=== PATIENT | male | born 1945 | race Caucasian/White ===

== ENCOUNTER 2022-07-31 12:56 | Inpatient (IN) ==
[2022-07-31] MEDS ORDERED: 0.9 % SODIUM CHLORIDE 1,000 ML IV ONE (13:41)
--- NOTE | 2022-07-31 13:59 | Emergency Department Note ---
HPI General Chief complaint: Fall Stated complaint: fall Time Seen by Provider: 07/31/22 13:28 Source: EMS Mode of arrival: EMS Limitations: no limitations History of Present Illness HPI Narrative: Narrative: Presents emergency department for evaluation after fall. Is been dizzy at home. He fell today. He is not certain if he had a loss consciousness he does not think so. He might of struck his head. Complains of pain in the right hip which has been achy. He has been ambulatory since the fall. Currently on antibiotics Macrobid for urinary tract infection. Has history of pancreatic cancer for the past 5 years. No fever. Has recent history of hematuria. First visit with urology was on the second of this month. Follow-up scheduled for 1 week from today. Just finishing Macrobid. No other complaints. Related Data Home Medications Medication Instructions Recorded Confirmed cholecalciferol (vitamin D3) 25 1,000 unit PO QDAY 07/16/18 07/26/22 mcg (1,000 unit) tablet calcium carbonate 600 mg calcium 600 mg PO QDAY 07/10/22 07/26/22 (1,500 mg) tablet (Calcium) magnesium oxide 400 mg (241.3 mg 400 mg PO QDAY 07/10/22 07/26/22 magnesium) tablet Previous Rx's Medication Instructions Recorded docusate sodium 100 mg capsule 100 mg PO BID #60 caps 04/04/21 (DOK) empagliflozin 25 mg tablet 25 mg PO QDAY #90 tabs 08/29/21 (Jardiance) albuterol sulfate 90 mcg/actuation 2 puff inhalation Q6H PRN 09/27/21 aerosol inhaler shortness of breath or wheezing #8.5 grams Portable O2 concentrator #1 ea 10/06/21 insulin glargine 100 unit/mL (3 25 unit (0.25 mL) subcut QHS #15 mL 10/06/21 mL) subcutaneous pen (Lantus Solostar U-100 Insulin) labetalol 200 mg tablet 200 mg PO BID #180 tabs 03/06/22 potassium chloride 20 mEq 20 meq PO QPMCC #90 tabs 03/23/22 tablet,extended release hydrocodone 10 mg-acetaminophen 1 - 2 tab PO Q4HP PRN Per Pain 04/15/22 325 mg tablet Protocol #60 tabs insulin aspart U-100 100 unit/mL 1 sliding scale dose subcut 05/04/22 (3 mL) subcutaneous pen (Novolog USEASDIRECTD #15 mL Flexpen U-100 Insulin aspart) omeprazole 40 mg capsule,delayed 40 mg PO BID #180 caps 05/05/22 release oxybutynin chloride 5 mg tablet 5 mg PO BID #180 tabs 05/05/22 gabapentin 300 mg capsule 300 mg PO .COMPLEX #120 caps 07/06/22 mirtazapine 15 mg tablet 15 mg PO QHS #90 tabs 07/10/22 tamsulosin 0.4 mg capsule (Flomax) 0.4 mg PO QHS #90 caps 07/10/22 furosemide 20 mg tablet (Lasix) 20 mg PO QDAY #30 tabs 07/12/22 amlodipine 5 mg tablet 5 mg PO BID #180 tabs 07/24/22 Allergies Allergy/AdvReac Type Severity Reaction Status Date / Time ciprofloxacin Allergy Intermediate rash/nausea Verified 07/31/22 13:05 lansoprazole [From Prevacid] AdvReac Mild Other Verified 07/31/22 13:05 tiotropium AdvReac Mild Other Verified 07/31/22 13:05 [From Spiriva with HandiHaler] advair HFA AdvReac Mild Other Uncoded 07/26/22 09:55 Review of Systems ROS ROS Narrative: Narrative: As above, all other systems reviewed and negative. [facility] Narrative Patient History Narrative: Narrative: Medical/Surgical/Family History All Active Problems (Updated 07/31/22 @ 18:56 by Raji Mercedes MD) Atypical chest pain (Chronic) Back pain (Chronic) Barkley's esophagus (Chronic) Adenomatous colon polyp (Chronic) Esophagitis (Chronic) Goiter (Chronic) Dyslipidemia (Chronic) Essential hypertension (Chronic) Calculus of kidney (Chronic) Malignant neoplasm of prostate (Chronic) Personal history of other malignant neoplasm of skin (Chronic) History of tobacco use (Chronic) Previous back surgery (Chronic) Chronic obstructive pulmonary disease (Chronic) Nocturnal dyspnea (Acute) Aortic valve insufficiency (Chronic) Pancreatitis (Acute) Encounter for Health Maintenance Examination in Adult (Chronic) Pulmonary nodule (Acute) Bronchitis (Acute) Diabetes mellitus (Chronic) 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 2005-- No polyps. 10/2007 -- Diverticuli. 01/20/2013 -- Uncomplicated internal hemorrhoids and diverticulosis. 5 year sequencing. Advanced COPD Distant ex-smoker, quit in 2001. Component of COPD; extensive workup at the [facility] 03/2010 for dyspnea with previous CTA echo, PFTs with diffusion, VQ scan and cardiolite. Chest x-ray 06/2011; previous hoarseness with ENT review in 07/2011. Issue clinically stable. Aortic valve insufficiency 1+ by 08/2015 echo Atypical chest pain Questionable cardiolite 2004; negative heart cath. Stable cardiolite in 2009. Back pain Low back pain with right leg radiculopathy; MRI 01/2012. Sequencing at pain clinic unhelpful; mini lumbar surgery with Dr. Pedroza 07/2012. Barkley's esophagus 08/22/04 EGD--Barkley's esophagus, biopsied for dysplasia surveillance. Hiatal hernia. 01/24/08 EGD w/biopsy--Barkley's; nodule gastric fundus. 01/26/10 EGD--Barkley's; hiatal hernia; minor antritis; fundic polyps. 05/11/10--EGD--Barkley's, positive for low grade dysplasia; squamous mucosa, neg. for significant eosinophilia. 05/01/11 EGD--Barkley's esophagus; hiatal hernia. Stable on high-dose of Prilosec. 08/04/13 EGD--Dr. Ragland--Barkley's esophagus, hiatal hernia. 3-year sequence. Bronchitis Calculus of kidney Hx; previously reviewed by Dr. Couch. Chronic obstructive pulmonary disease Dyslipidemia Currently on medication. Esophagitis Essential hypertension Previous assessment of her renal artery stenosis. Goiter Hx of multinodular goiter, orgininally evaluated in 2003 with negative biopsy of cold nodule 04/2004, updated US 2006; negative antibodies and stable updated US 11/2011. Currently stable thyroid. History of tobacco use Distant ex-smoker, quit in 2001. Component of COPD; extensive workup at the [facility] 03/2010 for dyspnea with previous CTA echo, PFTs with diffusion, VQ scan and cardiolite. Chest x-ray 06/2011; previous hoarseness with ENT review in 07/2011. Issue clinically stable. Malignant neoplasm of prostate S/P radiation therapy in 05/2009, gradually improving. 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 Regular dermatology review with Dr. Viera. SOB (shortness of breath) Distant ex-smoker, quit in 2001. Component of COPD; extensive workup at the [facility] 03/2010 for dyspnea with previous CTA echo, PFTs with diffusion, VQ scan and cardiolite. Chest x-ray 06/2011; previous hoarseness with ENT review in 07/2011. Issue clinically stable. Urinary tract infection Surgical History H/O repair of rotator cuff 10/2008 History of cardiac cath History of colonoscopy (05/02/18) 01/20/13 Hx of colonoscopy 2003-- Adenomatous polyp. 2005-- No polyps. 10/2007 -- Diverticuli. 01/20/2013 -- Uncomplicated internal hemorrhoids and diverticulosis. 5 year sequencing. Hx of esophagogastroduodenoscopy (08/22/04) Barkley's esophagus, biopsied for dysplasia surveillance. Hiatal hernia. 01/24/08 EGD w/biopsy--Barkley's; nodule gastric fundus. 01/26/10 EGD--Barkley's; hiatal hernia; minor antritis; fundic polyps. 05/11/10--EGD--Barkley's, positive for low grade dysplasia; squamous mucosa, neg. for significant eosinophilia. 05/01/11 EGD--Barkley's esophagus; hiatal hernia. 08/04/13 EGD--Dr. Ragland--Barkley's esophagus, hiatal hernia. 3-year sequence. Hx of prostate biopsy (04/05/09) Prostate biopsy 04/05/09--Dr. Couch. Previous back surgery 07/2012 - mini lumbar surgery S/P radiation therapy Prostate cancer S/P surgical manipulation of ankle joint 04/2011 - right ankle repair Status post surgical removal of malignant neoplasm of skin 10/2009 - nasal skin cancer Family History Mother Diabetes mellitus on oral agents Other Cancer HTN (hypertension) Kidney stone Prostate cancer Social History Smoking Status: Former smoker Alcohol Intake Frequency: holiday/special occasion only Substance Use: does not use Exam Narrative Narrative: Narrative: Blood pressure 101/54, pulse 80, respirations 16, temperature 98, O2 sat 97% on 4 L. General Limitations: no limitations General appearance: Present alert Head Head: Present atraumatic, normocephalic and normal inspection Eye Eye: Present normal appearance, PERRL and EOMI ENT ENT: Present normal exam Neck Neck: Present normal inspection and full ROM Respiratory Respiratory: Absent respiratory distress Extremities Extremities: Present normal inspection Neurological Neurological: Present alert, oriented X3 and CN II-XII intact; Absent motor sensory deficit Psychiatric Psychiatric: Present normal affect and normal mood Skin Skin: Present warm (WNL) and dry Course Vital Signs Vital signs: Vital Signs Temperature 98.0 F 07/31/22 13:01 Pulse Rate 80 07/31/22 13:01 Respiratory Rate 16 07/31/22 13:01 Blood Pressure 101/54 07/31/22 13:01 Pulse Oximetry (%) 97 07/31/22 13:01 Oxygen Delivery Method 07/31/22 13:01 Oxygen Flow Rate (L/min) 4 07/31/22 13:01 Temperature 98.0 F 07/31/22 13:01 Pulse Rate 81 07/31/22 16:27 Respiratory Rate 16 07/31/22 13:01 Blood Pressure 107/62 07/31/22 14:05 Pulse Oximetry (%) 96 07/31/22 16:27 Oxygen Delivery Method 07/31/22 14:00 Oxygen Flow Rate (L/min) 4 07/31/22 13:01 [facility] MDM Narrative Medical decision making narrative: Narrative: EKG shows sinus rhythm, no acute ischemic changes, intervals otherwise normal. Patient's hydrated IV fluids. Spoke with the on-call urologist on-call hospitalist. Case reviewed in detail over the phone. Patient be admitted to the hospitalist service. Discussed findings with patient and the family. Their questions were answered. 1 unit PRBCs were ordered. Patient is agreeable with the plan. Lab Data Result diagrams: 07/31/22 13:59 07/31/22 13:59 Labs: Lab Results 07/31/22 07/31/22 07/31/22 Range/Units 13:59 13:59 15:12 WBC 3.1 L (4.5-11.0) K/mcL RBC 2.22 L (4.63-6.08) M/mcL Hgb 7.7 L (13.7-17.5) g/dL Hct 24.3 L (40.1-51.0) % MCV 109.5 H (80.0-100.0) fL MCH 34.7 H (26.0-34.0) pg MCHC 31.7 (31.0-36.0) g/dL RDW 17.1 H (11.5-14.5) % Plt Count 94 L (140-440) K/mcL MPV 10.2 (8.8-12.5) fL Immature Gran % (Auto) 1.6 H (0.0-0.5) % Neut % (Auto) 64.0 (38.0-78.0) % Lymph % (Auto) 11.8 L (15.5-49.0) % Sanders % (Auto) 19.3 H (1.0-12.0) % Eos % (Auto) 2.6 (0.0-7.0) % Baso % (Auto) 0.7 (0.0-2.0) % Lymph # (Auto) 0.36 L (1.50-4.80) K/mcL Sanders # (Auto) 0.59 (0.10-0.90) K/mcL Eos # (Auto) 0.08 (0.00-0.70) K/mcL Baso # (Auto) 0.02 (0.00-0.30) K/mcL Immature Gran # 0.05 (0.00-0.05) K/mcl Absolute Neutrophils 1.96 (1.80-8.00) K/mcL Sodium 139 (133-145) mmol/L Potassium 4.5 (3.3-5.1) mmol/L Chloride 107 (96-108) mmol/L Carbon Dioxide 27 (22-30) mmol/L Anion Gap 5.0 L (8.0-16.0) BUN 21 (8-23) mg/dL Creatinine 1.5 H (0.7-1.2) mg/dL GFR Calculation 44 Glucose 145 H (70-105) mg/dL Calcium 8.8 (8.6-10.4) mg/dL Urine Color Red Urine Appearance Cloudy A (Clear) Urine pH 6.0 (5.0-9.0) Ur Specific [place] 1.025 (1.000-1.035) Urine Protein >=300 A (Negative) mg/dL Urine Glucose (UA) >=1000 A (Negative) mg/dL Urine Ketones Negative (Negative) mg/dL Urine Occult Blood Large A (Negative) jaki/mcL Urine Nitrate Negative (Negative) Urine Bilirubin Negative (Negative) mg/dL Urine Urobilinogen Normal mg/dL Ur Leukocyte Esterase Negative (Negative) /uL Urine RBC > 182 H (0-1) /hpf Urine WBC > 182 H (0-4) /hpf Ur Squamous Epith Cells 0 (0-4) /hpf Urine Bacteria Mod A (0) /hpf Ur Culture Indicated? yes Discharge Plan Patient/Caregiver Discharge Instructions Pt seen by SQL CONSULTANT/PA only: No Clinical Impression: Hematuria, Anemia, Weakness, Fall Patient Disposition: Xfer As Inpt ([facility]) Follow up with: Thai Joy DO [Primary Care Provider] - Prescriptions: No Action Jardiance 25 mg tablet 25 mg PO QDAY Qty: 90 3RF Lantus Solostar U-100 Insulin 100 unit/mL (3 mL) insulin pen 25 unit SUB-Q QHS Qty: 15 3RF Hold Instructions: Doctor's Order (DME) Portable O2 concentrator See Rx Instructions .Route .MEDSUPPLY Qty: 1 0RF Rx Instructions: Up to 2L NC as needed to keep O2 >90% labetalol 200 mg tablet 200 mg PO BID Qty: 180 1RF potassium chloride 20 mEq tablet extended release 20 meq PO QPMCC Qty: 90 1RF insulin aspart U-100 [Novolog Flexpen U-100 Insulin] 100 unit/mL (3 mL) insulin pen 1 sliding scale dose subcut USEASDIRECTD MDD 50 units Qty: 15 3RF Hold Instructions: Doctor's Order Rx Instructions: 2u for glucose 180-200, 3u 201-220, 4u 221-240, 5u 241-260, 6u 261-280, 7u 281-300, 8u 301-320, 9u 321-340, 10u for 341+ omeprazole 40 mg capsule,delayed release(DR/EC) 40 mg PO BID Qty: 180 1RF oxybutynin chloride 5 mg tablet 5 mg PO BID Qty: 180 0RF gabapentin 300 mg capsule 300 mg PO .COMPLEX Qty: 120 3RF Rx Instructions: 300 mg PO QAM, 300mg QNoon, 600mgQHS; furosemide [Lasix] 20 mg tablet 20 mg PO QDAY Qty: 30 1RF amlodipine 5 mg tablet 5 mg PO BID Qty: 180 1RF cholecalciferol (vitamin D3) 1,000 unit tablet 1,000 unit PO QDAY albuterol sulfate 90 mcg/actuation HFA aerosol inhaler 2 puff inhalation Q6H PRN (Reason: shortness of breath or wheezing) Qty: 8.5 3RF magnesium oxide 400 mg (241.3 mg magnesium) tablet 400 mg PO QDAY calcium carbonate [Calcium 600] 600 mg calcium (1,500 mg) tablet 600 mg PO QDAY mirtazapine 15 mg tablet 15 mg PO QHS Qty: 90 3RF tamsulosin [Flomax] 0.4 mg capsule 0.4 mg PO QHS Qty: 90 3RF docusate sodium [DOK] 100 mg Capsule 100 mg PO BID Qty: 60 0RF hydrocodone-acetaminophen 10-325 mg Tablet 1 - 2 tab PO Q4HP PRN (Reason: Per Pain Protocol) Qty: 60 0RF
--- NOTE | 2022-07-31 14:50 | Cat Scan Report ---
History: Fell, dizziness, weakness, history of pancreas and prostate cancer TECHNIQUE: The brain was imaged without contrast in axial plane at 2.5 mm intervals. Sagittal and coronal reformats were created. The radiation exposure was limited using dose reduction technology. FINDINGS: Mild atrophy is present in the frontal and temporal lobes bilaterally. There is no intracranial hemorrhage, edema, infarct or mass effect. The ventricles are normal in size. No abnormal extra-axial fluid collection is present. Bone windows show no skull fracture or metastasis. Visualized sinuses are clear. Calvarium is asymmetrically developed. This is an anatomic variant. IMPRESSION: Mild age-related degenerative changes and no acute abnormality Dr. Mercedes was called with the report Interpreted and Authenticated by: Shamar Billings 07/31/22
[2022-07-31 15:15] LABS: Blood Urea Nitrogen 21 mg/dL (8-23); Calcium 8.8 mg/dL (8.6-10.4); Carbon Dioxide 27 mmol/L (22-30); Chloride 107 mmol/L (96-108); Glomerular Filtration Rate 44; Glucose 145 mg/dL (70-105)
--- NOTE | 2022-07-31 15:48 | XRay Report ---
HISTORY: Fell, right hip injury FINDINGS: No fracture or dislocation are present. There is a well-positioned right total hip prosthesis. There is no reabsorption of bone around the hardware. There are several vascular calcifications in the groin and upper thigh. Small surgical clips are seen overlying the pubic bones. Disc space narrowing is present at L3-4 and L4-5. Comparison with the prior x-ray done on 05/26/22 shows no change. IMPRESSION: No fracture Interpreted and Authenticated by: Shamar Billings 07/31/22
[2022-07-31 16:15] LABS: Basophils # (Auto) 0.02 K/mcL (0.00-0.30); Basophils % (Auto) 0.7 % (0.0-2.0); Eosinophils # (Auto) 0.08 K/mcL (0.00-0.70); Eosinophils % (Auto) 2.6 % (0.0-7.0); Hematocrit 24.3 % (40.1-51.0); Hemoglobin 7.7 g/dL (13.7-17.5); Lymphocytes # (Auto) 0.36 K/mcL (1.50-4.80); Lymphocytes % (Auto) 11.8 % (15.5-49.0); Mean Cell Volume 109.5 fL (80.0-100.0); Mean Corpuscular HGB Conc 31.7 g/dL (31.0-36.0); Mean Platelet Volume 10.2 fL (8.8-12.5); Monocytes # (Auto) 0.59 K/mcL (0.10-0.90); Monocytes % (Auto) 19.3 % (1.0-12.0); Platelet Count 94 K/mcL (140-440); RBC 2.22 M/mcL (4.63-6.08); Red Cell Distribution Width 17.1 % (11.5-14.5); WBC 3.1 K/mcL (4.5-11.0)
[2022-07-31 16:15] LABS: Appearance,Urine CLOUDY (Clear); Bacteria,Urine MOD /hpf (0); Bilirubin,Urine NEGATIVE (Negative); Color,Urine RED; Culture Indicated,Urine yes; Glucose,Urine (UA) >=1000 mg/dL (Negative); Ketones,Urine NEGATIVE (Negative); Leukocyte Esterase,Urine NEGATIVE /uL (Negative); Nitrate,Urine NEGATIVE (Negative); Protein,Urine >=300 mg/dL (Negative); Specific Gravity,Urine 1.025 (1.000-1.035); Urine Blood LARGE ery/mcL (Negative); Urine RBC > 182 /hpf (0-1); Urine Squamous Epithelial Cell 0 /hpf (0-4); Urine WBC > 182 /hpf (0-4); Urobilinogen,Urine Normal
[2022-07-31] MEDS ORDERED: 0.9 % SODIUM CHLORIDE 250 ML IV SCH (19:00)
--- NOTE | 2022-07-31 19:29 | Internal Med History&Physical ---
HPI History of Present Illness Patient information: Note initiated : 07/31/22 at 7:26 pm Service Date, if different from initiated Date: [] Patient: Terrence Hoyos a 77 y/o M admitted on for fall. Chief Complaint: [] History of present illness: Mr. Hoyos is a 77 year old male with a history of multiple comorbidities most significant of which is stage IV pancreatic adenocarcinoma diagnosed in 2017 currently receiving chemotherapy every 2 weeks with gemcitabine and Abraxane. 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 Patient also has a history of prostate cancer diagnosed 5 to 6 years ago treated with external beam radiation treatments. More recently, the patient developed gross hematuria and was seen in the ED where he was found to have a urinary tract infection. The patient was started on antibiotics which she recently finished for UTI. The patient continues to have hematuria which has not improved in spite of antibiotic treatment. The patient did have a CT abdomen pelvis with contrast on 07/20/2022 which showed abnormal bladder mucosal thickening which could represent cystitis versus malignancy. The patient presents today to the emergency department for generalized weakness and a fall at home. The patient says that he has been getting progressively weaker over the last week. He continues to experience gross hematuria with clots seen in his urine. In the emergency department, the patient's hemoglobin was 7.7, down from 10.3 on 07/21/2022. Patient also has a elevation in creatinine to 1.5, baseline 1.0-1.2. Patient did have a CT head which did not show any acute changes. Patient also had a x-ray of his right hip which did not show any acute fractures. Upon examination, the patient is noted to have gross hematuria. He has bilateral lower extremity pitting edema and is on 4 L nasal cannula oxygen. Patient says that this oxygen requirement is not new, he has been on home oxygen for some time. We discussed the plan of care and reviewed the patient's CODE STATUS. Patient says that he wishes to be a limited code. Review of systems Constitutional: No fevers or chills, positive for generalized weakness Eyes: no vision changes or pain Cardiovascular: no chest pain, no palpitations Respiratory: no cough or dyspnea Gastrointestinal: Mild abdominal pain, no nausea, vomiting, or diarrhea Genitourinary: Positive for gross hematuria Musculoskeletal: Positive for bilateral lower extremity edema Integumentary: Positive for pressure wound on buttocks Neurological: no focal weakness or numbness Psychiatric: no anxiety or depression Physical exam Head: Atraumatic, normal inspection. Eyes: normal appearance, no scleral icterus. Neck: full ROM Respiratory: Nasal cannula oxygen supplementation, no respiratory distress. Cardiovascular: normal rate and rhythm, S1, S2. GI/Abdominal: soft, nontender, no guarding. Extremities: Bilateral lower extremity pitting edema up to knees, full range of motion, nontender. Neurological: CN II-XII intact, intact motor, intact sensation. Psychiatric: Memory impairment. Skin: warm, normal color PFSH PFSH All Active Problems (Updated 07/31/22 @ 18:56 by Raji Mercedes MD) Atypical chest pain (Chronic) Back pain (Chronic) Barkley's esophagus (Chronic) Adenomatous colon polyp (Chronic) Esophagitis (Chronic) Goiter (Chronic) Dyslipidemia (Chronic) Essential hypertension (Chronic) Calculus of kidney (Chronic) Malignant neoplasm of prostate (Chronic) Personal history of other malignant neoplasm of skin (Chronic) History of tobacco use (Chronic) Previous back surgery (Chronic) Chronic obstructive pulmonary disease (Chronic) Nocturnal dyspnea (Acute) Aortic valve insufficiency (Chronic) Pancreatitis (Acute) Encounter for Health Maintenance Examination in Adult (Chronic) Pulmonary nodule (Acute) Bronchitis (Acute) Diabetes mellitus (Chronic) 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 2005-- No polyps. 10/2007 -- Diverticuli. 01/20/2013 -- Uncomplicated internal hemorrhoids and diverticulosis. 5 year sequencing. Advanced COPD Distant ex-smoker, quit in 2001. Component of COPD; extensive workup at the [facility] 03/2010 for dyspnea with previous CTA echo, PFTs with diffusion, VQ scan and cardiolite. Chest x-ray 06/2011; previous hoarseness with ENT review in 07/2011. Issue clinically stable. Aortic valve insufficiency 1+ by 08/2015 echo Atypical chest pain Questionable cardiolite 2004; negative heart cath. Stable cardiolite in 2009. Back pain Low back pain with right leg radiculopathy; MRI 01/2012. Sequencing at pain clinic unhelpful; mini lumbar surgery with Dr. Pedroza 07/2012. Barkley's esophagus 08/22/04 EGD--Barkley's esophagus, biopsied for dysplasia surveillance. Hiatal hernia. 01/24/08 EGD w/biopsy--Barkley's; nodule gastric fundus. 01/26/10 EGD--Barkley's; hiatal hernia; minor antritis; fundic polyps. 05/11/10--EGD--Barkley's, positive for low grade dysplasia; squamous mucosa, neg. for significant eosinophilia. 05/01/11 EGD--Barkley's esophagus; hiatal hernia. Stable on high-dose of Prilosec. 08/04/13 EGD--Dr. Ragland--Barkley's esophagus, hiatal hernia. 3-year sequence. Bronchitis Calculus of kidney Hx; previously reviewed by Dr. Couch. Chronic obstructive pulmonary disease Dyslipidemia Currently on medication. Esophagitis Essential hypertension Previous assessment of her renal artery stenosis. Goiter Hx of multinodular goiter, orgininally evaluated in 2003 with negative biopsy of cold nodule 04/2004, updated US 2006; negative antibodies and stable updated US 11/2011. Currently stable thyroid. History of tobacco use Distant ex-smoker, quit in 2001. Component of COPD; extensive workup at the [facility] 03/2010 for dyspnea with previous CTA echo, PFTs with diffusion, VQ scan and cardiolite. Chest x-ray 06/2011; previous hoarseness with ENT review in 07/2011. Issue clinically stable. Malignant neoplasm of prostate S/P radiation therapy in 05/2009, gradually improving. 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 Regular dermatology review with Dr. Viera. SOB (shortness of breath) Distant ex-smoker, quit in 2001. Component of COPD; extensive workup at the [facility] 03/2010 for dyspnea with previous CTA echo, PFTs with diffusion, VQ scan and cardiolite. Chest x-ray 06/2011; previous hoarseness with ENT review in 07/2011. Issue clinically stable. Urinary tract infection Surgical History H/O repair of rotator cuff 10/2008 History of cardiac cath History of colonoscopy (05/02/18) 01/20/13 Hx of colonoscopy 2003-- Adenomatous polyp. 2005-- No polyps. 10/2007 -- Diverticuli. 01/20/2013 -- Uncomplicated internal hemorrhoids and diverticulosis. 5 year sequencing. Hx of esophagogastroduodenoscopy (08/22/04) Barkley's esophagus, biopsied for dysplasia surveillance. Hiatal hernia. 01/24/08 EGD w/biopsy--Barkley's; nodule gastric fundus. 01/26/10 EGD--Barkley's; hiatal hernia; minor antritis; fundic polyps. 05/11/10--EGD--Barkley's, positive for low grade dysplasia; squamous mucosa, neg. for significant eosinophilia. 05/01/11 EGD--Barkley's esophagus; hiatal hernia. 08/04/13 EGD--Dr. Ragland--Barkley's esophagus, hiatal hernia. 3-year sequence. Hx of prostate biopsy (04/05/09) Prostate biopsy 04/05/09--Dr. Couch. Previous back surgery 07/2012 - mini lumbar surgery S/P radiation therapy Prostate cancer S/P surgical manipulation of ankle joint 04/2011 - right ankle repair Status post surgical removal of malignant neoplasm of skin 10/2009 - nasal skin cancer Family History Mother Diabetes mellitus on oral agents Other Cancer HTN (hypertension) Kidney stone Prostate cancer Social History household members: spouse housing: house lives independently: Yes marital status: occupational status: retired smoking status: Former smoker alcohol intake frequency: holiday/special occasion only substance use type: does not use MEDS/ALLERGIES Home Medications and Allergies Home Medications Medication Instructions Recorded Confirmed Type cholecalciferol (vitamin D3) 25 1,000 unit PO QDAY 07/16/18 07/26/22 History mcg (1,000 unit) tablet docusate sodium 100 mg capsule 100 mg PO BID #60 caps 04/04/21 07/26/22 Rx ([facility]) empagliflozin 25 mg tablet 25 mg PO QDAY #90 tabs 08/29/21 07/26/22 Rx ([facility]) albuterol sulfate 90 mcg/actuation 2 puff inhalation Q6H PRN 09/27/21 07/26/22 Rx aerosol inhaler shortness of breath or wheezing #8.5 grams Portable O2 concentrator #1 ea 10/06/21 07/26/22 Rx insulin glargine 100 unit/mL (3 25 unit (0.25 mL) subcut QHS #15 mL 10/06/21 07/26/22 Rx mL) subcutaneous pen (Lantus Solostar U-100 Insulin) labetalol 200 mg tablet 200 mg PO BID #180 tabs 03/06/22 07/26/22 Rx potassium chloride 20 mEq 20 meq PO QPMCC #90 tabs 03/23/22 07/26/22 Rx tablet,extended release hydrocodone 10 mg-acetaminophen 1 - 2 tab PO Q4HP PRN Per Pain 04/15/22 07/26/22 Rx 325 mg tablet Protocol #60 tabs insulin aspart U-100 100 unit/mL 1 sliding scale dose subcut 05/04/22 07/26/22 Rx (3 mL) subcutaneous pen (Novolog USEASDIRECTD #15 mL Flexpen U-100 Insulin aspart) omeprazole 40 mg capsule,delayed 40 mg PO BID #180 caps 05/05/22 07/26/22 Rx release oxybutynin chloride 5 mg tablet 5 mg PO BID #180 tabs 05/05/22 07/26/22 Rx gabapentin 300 mg capsule 300 mg PO .COMPLEX #120 caps 07/06/22 07/26/22 Rx calcium carbonate 600 mg calcium 600 mg PO QDAY 07/10/22 07/26/22 History (1,500 mg) tablet (Calcium) magnesium oxide 400 mg (241.3 mg 400 mg PO QDAY 07/10/22 07/26/22 History magnesium) tablet mirtazapine 15 mg tablet 15 mg PO QHS #90 tabs 07/10/22 07/26/22 Rx tamsulosin 0.4 mg capsule (Flomax) 0.4 mg PO QHS #90 caps 07/10/22 07/26/22 Rx furosemide 20 mg tablet (Lasix) 20 mg PO QDAY #30 tabs 07/12/22 07/26/22 Rx amlodipine 5 mg tablet 5 mg PO BID #180 tabs 07/24/22 07/26/22 Rx Allergies Allergy/AdvReac Type Severity Reaction Status Date / Time ciprofloxacin Allergy Intermediate rash/nausea Verified 07/31/22 13:05 lansoprazole [From Prevacid] AdvReac Mild Other Verified 07/31/22 13:05 tiotropium AdvReac Mild Other Verified 07/31/22 13:05 [From Spiriva with HandiHaler] advair HFA AdvReac Mild Other Uncoded 07/26/22 09:55 EXAM Constitutional Vitals: Temp Pulse Resp BP Pulse Ox O2 Del Method O2 Flow Rate 98.0 F 80 16 107/62 95 4 07/31/22 13:01 07/31/22 19:05 07/31/22 13:01 07/31/22 14:05 07/31/22 19:05 07/31/22 14:00 07/31/22 13:01 DATA Data Completed and Pending Labs: Labs from last 24 hours 07/31/22 07/31/22 07/31/22 15:12 13:59 13:59 WBC 3.1 L RBC 2.22 L Hgb 7.7 L Hct 24.3 L MCV 109.5 H MCH 34.7 H MCHC 31.7 RDW 17.1 H Plt Count 94 L MPV 10.2 Immature Gran % (Auto) 1.6 H Neut % (Auto) 64.0 Lymph % (Auto) 11.8 L Waller % (Auto) 19.3 H Eos % (Auto) 2.6 Baso % (Auto) 0.7 Lymph # (Auto) 0.36 L Waller # (Auto) 0.59 Eos # (Auto) 0.08 Baso # (Auto) 0.02 Immature Gran # 0.05 Absolute Neutrophils 1.96 Sodium 139 Potassium 4.5 Chloride 107 Carbon Dioxide 27 Anion Gap 5.0 L BUN 21 Creatinine 1.5 H GFR Calculation 44 Glucose 145 H Calcium 8.8 Urine Color Red Urine Appearance Cloudy A Urine pH 6.0 Ur Specific [place] 1.025 Urine Protein >=300 A Urine Glucose (UA) >=1000 A Urine Ketones Negative Urine Occult Blood Large A Urine Nitrate Negative Urine Bilirubin Negative Urine Urobilinogen Normal Ur Leukocyte Esterase Negative Urine RBC > 182 H Urine WBC > 182 H Ur Squamous Epith Cells 0 Urine Bacteria Mod A Ur Culture Indicated? yes A/P Narrative A/P Narrative: Assessment: 77-year-old male with stage IV pancreatic adenocarcinoma on chemotherapy, history of prostate cancer, and multiple other comorbidities admitted for acute on chronic anemia likely secondary to gross hematuria. #Acute on chronic anemia #Gross hematuria #Recent UTI secondary to Klebsiella pneumonia #Concern for possible bladder mass #Acute kidney injury #Volume overload #Generalized weakness #COPD with chronic hypoxia #Type 2 diabetes mellitus #Chronic pain secondary to cancer #History of prostate cancer #Stage IV pancreatic adenocarcinoma on palliative chemotherapy (gemcitabine and Abraxane) Plan -Transfuse 1 unit of RBC. -Follow hemoglobin, transfuse for hemoglobin less than 7 or symptomatic anemia. -Lasix 40 mg IV x2. -Monitor renal function, urine output. -Bilateral renal ultrasound/bladder ultrasound. -Correction Humalog SSIlow dose. -Oxygen supplementation. -Analgesics as needed. -Home medication reconciliation, continue important meds. -Urology consult in the morning. -N.p.o. after midnight. -PT and OT consult. -DVT prophylaxis: SCDs -CODE STATUS: Limited Time Spent With Patient Time: Total time spent is greater than 50% in coordination of care (as documented) at patient's floor/unit and/or counseling patient:
--- NOTE | 2022-07-31 20:25 | EKG ---
[facility] Test Date: 2022-07-31 Pat Name: Terrence Hoyos Department: ED Room: Gender: Male [place]: AW : 1945 Requested By: Raji Mercedes Order Number: [id number] Reading MD: Matt Ignacio Measurements Intervals [place] Rate: 73 P: 18 AK: 181 QRS: 20 QRSD: 95 T: 26 QT: 395 QTc: 436 Interpretive Statements Sinus rhythm Electronically Signed On 07-31-2022 20:25:33 PST by Matt Ignacio /store/[email or web address]/[id number]
[2022-07-31] MEDS ORDERED: DEXTROSE 50% 50 ML VIAL IV PRN (20:51)
[2022-07-31] MEDS ORDERED: ONDANSETRON 4 MG/2 ML VIAL IV PRN (20:51)
[2022-07-31] MEDS ORDERED: ACETAMINOPHEN 325 MG TABLET PO PRN (20:51)
[2022-07-31] MEDS ORDERED: ALBUTEROL SULFATE 2.5 MG/3 ML NEBULIZER NEB PRN (20:51)
[2022-07-31] MEDS ORDERED: DEXTROSE 31 GM ORAL.SUSP PO PRN (20:51)
[2022-07-31] MEDS ORDERED: cefTRIAXone 2 GM VIAL ONE (22:13)
[2022-07-31] MEDS: cefTRIAXone 2 GM in DEXTROSE 5% IN WATER 50 ML IV SCH (23:10)
[2022-07-31] MEDS: FUROSEMIDE 40 MG/4 ML VIAL IV SCH (23:10)
[2022-07-31] MEDS: DOCUSATE SODIUM 100 MG CAPSULE PO SCH (23:11)
[2022-07-31] MEDS: SENNOSIDES 1 TABLET PO SCH (23:12)
[2022-07-31] MEDS: 0.9 % SODIUM CHLORIDE 10 ML SYRINGE IV SCH (23:12)
[2022-07-31] MEDS: INSULIN LISPRO 1 UNIT/0.01 ML UNIT SQ SCH (23:36)
[2022-08-01] MEDS: oxyCODONE HCL 5 MG TABLET PO PRN (01:24)
[2022-08-01] MEDS: 0.9 % SODIUM CHLORIDE 10 ML SYRINGE IV SCH ×3 (05:16→21:35)
[2022-08-01 07:02] LABS: Basophils # (Auto) 0.01 K/mcL (0.00-0.30); Basophils % (Auto) 0.3 % (0.0-2.0); Eosinophils # (Auto) 0.09 K/mcL (0.00-0.70); Hematocrit 24.2 % (40.1-51.0); Hemoglobin 7.9 g/dL (13.7-17.5); Lymphocytes # (Auto) 0.44 K/mcL (1.50-4.80); Lymphocytes % (Auto) 14.4 % (15.5-49.0); Mean Cell Volume 105.2 fL (80.0-100.0); Mean Corpuscular HGB Conc 32.6 g/dL (31.0-36.0); Mean Platelet Volume 10.2 fL (8.8-12.5); Monocytes # (Auto) 0.56 K/mcL (0.10-0.90); Monocytes % (Auto) 18.4 % (1.0-12.0); Neutrophils % (Auto) 62.9 % (38.0-78.0); Platelet Count 96 K/mcL (140-440); Red Cell Distribution Width 17.4 % (11.5-14.5); WBC 3.1 K/mcL (4.5-11.0)
[2022-08-01] MEDS: INSULIN LISPRO 1 UNIT/0.01 ML UNIT SQ SCH ×4 (07:14→20:27)
[2022-08-01 07:27] LABS: ALT/SGPT 8 U/L (<40); AST/SGOT 15 U/L (<40); Albumin 3.3 gm/dL (3.2-5.2); Albumin/Globulin Ratio 2.2 (1.0-2.3); Alkaline Phosphatase 69 U/L (39-117); Bilirubin,Direct 0.2 mg/dL (<0.3); Bilirubin,Total 0.7 mg/dL (0.1-1.0); Blood Urea Nitrogen 17 mg/dL (8-23); Calcium 8.1 mg/dL (8.6-10.4); Carbon Dioxide 27 mmol/L (22-30); Chloride 106 mmol/L (96-108); Globulin 1.5 gm/dL (2.2-3.7); Glomerular Filtration Rate 47; Glucose 120 mg/dL (70-105); Lactate Dehydrogenase 232 U/L (135-225); Triglycerides 182 mg/dL (<150); Uric Acid 7.6 mg/dL (2.5-8.0)
--- NOTE | 2022-08-01 07:34 | Ultrasound Report ---
History: Acute kidney injury, gross hematuria FINDINGS: The right kidney measures 5.4 x 5.6 x 10.8 cm and the left measures 5.1 x 5.3 x 11.3 cm. The cortex is normal in thickness and echogenicity bilaterally. In the upper pole of the right kidney there is a simple cyst which measures 1.4 x 1.5 x 1.6 cm. There are three cysts in the left kidney. One is located at the upper pole which measures 1.6 x 1.7 x 1.9 cm. Centrally in the middle third there is a 1.4 x 1.8 x 2.3 cm. Medially in the lower third there is a third cyst which measures 1.5 x 1.7 x 2.0 cm. These are unchanged from the recent abdomen CT done on 05/06/22. There is no evidence of a solid mass in either kidney. No kidney stone or hydronephrosis are present. Doppler shows flow of urine through the right ureter into the bladder. We are unable to document urine flow in the left side. The bladder contains 521 cc of urine. Along the posterior wall there is an irregularly shaped heterogeneous solid mass in the bladder. It measures 2.9 x 5.6 x 6.1 cm. This does contain a small amount of blood flow. The bladder wall is 3 mm in thickness. Post void image was not acquired. IMPRESSION: 2.9 x 5.6 x 6.1 cm mass in the bladder. This may be a transitional cell carcinoma. Simple cysts in both kidneys Diminished urine output from the left kidney with good urine output on the right side. Interpreted and Authenticated by: Shamar Billings 08/01/22
[2022-08-01] MEDS: FUROSEMIDE 40 MG/4 ML VIAL IV SCH (08:28)
[2022-08-01] MEDS: DOCUSATE SODIUM 100 MG CAPSULE PO SCH ×2 (08:29→20:28)
[2022-08-01 09:02] LABS: Partial Thromboplastin Time 27.2 sec (20.0-37.0)
[2022-08-01 09:03] LABS: INR 1.1 (0.9-1.1); Prothrombin Time 14.9 sec (11.9-14.5)
--- NOTE | 2022-08-01 11:26 | Urology Consult Note ---
HPI Date of Consult Consult Date: 08/01/22 Primary Care Provider: Thai Joy DO Consult Narrative Patient Information: Note initiated : 08/01/22 at 11:20 am Service Date, if different from initiated Date: [] Patient: Terrence Hoyos 77 y/o M admitted on 07/31/22 for Transurethral Resection of Bladder Tumor w/. Gross hematuria Chief Complaint: [] 77-year-old gentleman who has a history of pancreatic cancer. I seen the patient in my office last week and he was scheduled for cystoscopy. He has continued to have gross hematuria with clots. Patient apparently became lightheaded and passed out yesterday. Patient was admitted through the emergency room. He denies any flank pain or abdominal pain. He has had no dysuria. He has felt quite weak. Patient denies any nausea or vomiting. cc:: CC: Alton Glez MD Constitutional Constitutional: Present weakness EENT Eyes: Present change in vision Cardiovascular Cardiovascular: Absent chest pain or dyspnea Respiratory Respiratory: Absent cough Gastrointestinal Gastrointestinal: Absent abdominal pain or nausea Genitourinary Genitourinary: as per HPI Musculoskeletal Musculoskeletal: Absent myalgias Neurological Neurological: Present as per HPI PFSH PFSH All Active Problems (Updated 08/01/22 @ 11:25 by Aleksander Angela MD) Hematuria (Chronic) Anemia (Acute) Weakness (Acute) Fall (Acute) Urinary tract infection (Acute) Hematuria (Acute) Malignant neoplasm of prostate (Chronic) Pancreatic cancer metastasized to lung (Chronic) Atypical chest pain (Chronic) Back pain (Chronic) Barkley's esophagus (Chronic) Adenomatous colon polyp (Chronic) Esophagitis (Chronic) Goiter (Chronic) Dyslipidemia (Chronic) Essential hypertension (Chronic) Calculus of kidney (Chronic) Personal history of other malignant neoplasm of skin (Chronic) History of tobacco use (Chronic) Previous back surgery (Chronic) Chronic obstructive pulmonary disease (Chronic) Nocturnal dyspnea (Acute) Aortic valve insufficiency (Chronic) Pancreatitis (Acute) Encounter for Health Maintenance Examination in Adult (Chronic) Pulmonary nodule (Acute) Bronchitis (Acute) Diabetes mellitus (Chronic) Neuropathy (Acute) Diverticulitis (Acute) Peripheral neuropathy (Chronic) GERD (gastroesophageal reflux disease) (Chronic) Medicare annual wellness visit, initial (Acute) Acute gout (Acute) Exertional dyspnea (Acute) OAB (overactive bladder) (Acute) Right groin pain (Acute) Major depressive disorder (Acute) Poor appetite (Acute) Medical History (Updated 08/01/22 @ 11:25 by Aleksander Angela MD) Adenomatous colon polyp 2003-- Adenomatous polyp. 2005-- No polyps. 10/2007 -- Diverticuli. -- Uncomplicated internal hemorrhoids and diverticulosis. 5 year sequencing. Advanced COPD Distant ex-smoker, quit in 2001. Component of COPD; extensive workup at the [facility] 03/2010 for dyspnea with previous CTA echo, PFTs with diffusion, VQ scan and cardiolite. Chest x-ray 06/2011; previous hoarseness with ENT review in 07/2011. Issue clinically stable. Aortic valve insufficiency 1+ by 08/2015 echo Atypical chest pain Questionable cardiolite 2004; negative heart cath. Stable cardiolite in 2009. Back pain Low back pain with right leg radiculopathy; MRI 01/2012. Sequencing at pain clinic unhelpful; mini lumbar surgery with Dr. Pedroza 07/2012. Barkley's esophagus 08/22/04 EGD--Barkley's esophagus, biopsied for dysplasia surveillance. Hiatal hernia. 01/24/08 EGD w/biopsy--Barkley's; nodule gastric fundus. 01/26/10 EGD--Barkley's; hiatal hernia; minor antritis; fundic polyps. 05/11/10--EGD--Barkley's, positive for low grade dysplasia; squamous mucosa, neg. for significant eosinophilia. 05/01/11 EGD--Barkley's esophagus; hiatal hernia. Stable on high-dose of Prilosec. 08/04/13 EGD--Dr. Ragland--Barkley's esophagus, hiatal hernia. 3-year sequence. Bronchitis Calculus of kidney Hx; previously reviewed by Dr. Couch. Chronic obstructive pulmonary disease Dyslipidemia Currently on medication. Esophagitis Essential hypertension Previous assessment of her renal artery stenosis. Goiter Hx of multinodular goiter, orgininally evaluated in 2003 with negative biopsy of cold nodule 04/2004, updated US 2006; negative antibodies and stable updated US 11/2011. Currently stable thyroid. Hematuria History of tobacco use Distant ex-smoker, quit in 2001. Component of COPD; extensive workup at the [facility] 03/2010 for dyspnea with previous CTA echo, PFTs with diffusion, VQ scan and cardiolite. Chest x-ray 06/2011; previous hoarseness with ENT review in 07/2011. Issue clinically stable. Malignant neoplasm of prostate S/P radiation therapy in 05/2009, gradually improving. 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 Regular dermatology review with Dr. Viera. SOB (shortness of breath) Distant ex-smoker, quit in 2001. Component of COPD; extensive workup at the [facility] 03/2010 for dyspnea with previous CTA echo, PFTs with diffusion, VQ scan and cardiolite. Chest x-ray 06/2011; previous hoarseness with ENT review in 07/2011. Issue clinically stable. Urinary tract infection Surgical History H/O repair of rotator cuff 10/2008 History of cardiac cath History of colonoscopy (05/02/18) 01/20/13 Hx of colonoscopy 2003-- Adenomatous polyp. 2005-- No polyps. 10/2007 -- Diverticuli. 013 -- Uncomplicated internal hemorrhoids and diverticulosis. 5 year sequencing. Hx of esophagogastroduodenoscopy (08/22/04) Barkley's esophagus, biopsied for dysplasia surveillance. Hiatal hernia. 01/24/08 EGD w/biopsy--Barkley's; nodule gastric fundus. 01/26/10 EGD--Barkley's; hiatal hernia; minor antritis; fundic polyps. 05/11/10--EGD--Barkley's, positive for low grade dysplasia; squamous mucosa, neg. for significant eosinophilia. 05/01/11 EGD--Barkley's esophagus; hiatal hernia. 08/04/13 EGD--Dr. Ragland--Barkley's esophagus, hiatal hernia. 3-year sequence. Hx of prostate biopsy (04/05/09) Prostate biopsy 04/05/09--Dr. Couch. Previous back surgery 07/2012 - mini lumbar surgery S/P radiation therapy Prostate cancer S/P surgical manipulation of ankle joint 04/2011 - right ankle repair Status post surgical removal of malignant neoplasm of skin 10/2009 - nasal skin cancer Family History Mother Diabetes mellitus on oral agents Other Cancer HTN (hypertension) Kidney stone Prostate cancer Social History household members: spouse housing: house lives independently: Yes marital status: occupational status: retired smoking status: Former smoker alcohol intake frequency: holiday/special occasion only substance use type: does not use MEDS/ALLERGIES Home Medications and Allergies Home Medications Medication Instructions Recorded Confirmed Type cholecalciferol (vitamin D3) 25 1,000 unit PO QDAY 07/16/18 07/26/22 History mcg (1,000 unit) tablet docusate sodium 100 mg capsule 100 mg PO BID #60 caps 04/04/21 07/26/22 Rx (DOK) empagliflozin 25 mg tablet 25 mg PO QDAY #90 tabs 08/29/21 07/26/22 Rx (Jardiance) albuterol sulfate 90 mcg/actuation 2 puff inhalation Q6H PRN 09/27/21 07/26/22 Rx aerosol inhaler shortness of breath or wheezing #8.5 grams Portable O2 concentrator #1 ea 10/06/21 07/26/22 Rx insulin glargine 100 unit/mL (3 25 unit (0.25 mL) subcut QHS #15 mL 10/06/21 07/26/22 Rx mL) subcutaneous pen (Lantus Solostar U-100 Insulin) labetalol 200 mg tablet 200 mg PO BID #180 tabs 03/06/22 07/26/22 Rx potassium chloride 20 mEq 20 meq PO QPMCC #90 tabs 03/23/22 07/26/22 Rx tablet,extended release hydrocodone 10 mg-acetaminophen 1 - 2 tab PO Q4HP PRN Per Pain 04/15/22 07/26/22 Rx 325 mg tablet Protocol #60 tabs insulin aspart U-100 100 unit/mL 1 sliding scale dose subcut 05/04/22 07/26/22 Rx (3 mL) subcutaneous pen (Novolog USEASDIRECTD #15 mL Flexpen U-100 Insulin aspart) omeprazole 40 mg capsule,delayed 40 mg PO BID #180 caps 05/05/22 07/26/22 Rx release oxybutynin chloride 5 mg tablet 5 mg PO BID #180 tabs 05/05/22 07/26/22 Rx gabapentin 300 mg capsule 300 mg PO .COMPLEX #120 caps 07/06/22 07/26/22 Rx calcium carbonate 600 mg calcium 600 mg PO QDAY 07/10/22 07/26/22 History (1,500 mg) tablet (Calcium) magnesium oxide 400 mg (241.3 mg 400 mg PO QDAY 07/10/22 07/26/22 History magnesium) tablet mirtazapine 15 mg tablet 15 mg PO QHS #90 tabs 07/10/22 07/26/22 Rx tamsulosin 0.4 mg capsule (Flomax) 0.4 mg PO QHS #90 caps 07/10/22 07/26/22 Rx furosemide 20 mg tablet (Lasix) 20 mg PO QDAY #30 tabs 07/12/22 07/26/22 Rx amlodipine 5 mg tablet 5 mg PO BID #180 tabs 07/24/22 07/26/22 Rx Allergies Allergy/AdvReac Type Severity Reaction Status Date / Time ciprofloxacin Allergy Intermediate rash/nausea Verified 07/31/22 23:56 lansoprazole [From Prevacid] AdvReac Mild Other Verified 07/31/22 23:56 tiotropium AdvReac Mild Other Verified 07/31/22 23:56 [From Spiriva with HandiHaler] advair HFA AdvReac Mild Other Uncoded 07/26/22 09:55 Physical Examination Vital Signs Vital signs: Temp Pulse Resp BP Pulse Ox O2 Del Method O2 Flow Rate 97.7 F 76 17 118/57 98 4 08/01/22 08:09 08/01/22 08:09 08/01/22 08:09 08/01/22 08:09 08/01/22 08:09 08/01/22 08:09 08/01/22 08:09 General physical appearance General physical exam: well developed, no distress and no pain Eyes Eye exam: PERRL ENT ENT exam: normal mucosa Neck Neck exam: no lymphadenopathy Cardiovascular Cardiovascular exam IM: Present normal rate and rhythm Respiratory Respiratory exam: normal expansion, normal respiratory effort and clear to auscultation Abdomen Abdomen: Present soft and non tender; Absent masses or guarding Genitourinary Genitourinary (Male): Present other (Mccabe catheter in place draining bloody urine, no clots) Psychiatric Psychiatric: Present oriented to time, oriented to person, oriented to place and speech is normal Results Labs Result diagrams: 08/01/22 05:15 08/01/22 05:15 Labs: Abnormal lab results 07/31/22 07/31/22 07/31/22 Range/Units 13:59 13:59 15:12 WBC 3.1 L (4.5-11.0) K/mcL RBC 2.22 L (4.63-6.08) M/mcL Hgb 7.7 L (13.7-17.5) g/dL Hct 24.3 L (40.1-51.0) % MCV 109.5 H (80.0-100.0) fL MCH 34.7 H (26.0-34.0) pg RDW 17.1 H (11.5-14.5) % Plt Count 94 L (140-440) K/mcL Immature Gran % (Auto) 1.6 H (0.0-0.5) % Lymph % (Auto) 11.8 L (15.5-49.0) % [place] % (Auto) 19.3 H (1.0-12.0) % Lymph # (Auto) 0.36 L (1.50-4.80) K/mcL PT (11.9-14.5) sec Anion Gap 5.0 L (8.0-16.0) Creatinine 1.5 H (0.7-1.2) mg/dL Glucose 145 H (70-105) mg/dL Calcium (8.6-10.4) mg/dL Phosphorus (2.5-4.5) mg/dL Lactate Dehydrogenase (135-225) U/L Total Protein (5.9-8.4) gm/dL Globulin (2.2-3.7) gm/dL Triglycerides (<150) mg/dL Urine Appearance Cloudy A (Clear) Urine Protein >=300 A (Negative) mg/dL Urine Glucose (UA) >=1000 A (Negative) mg/dL Urine Occult Blood Large A (Negative) jaki/mcL Urine RBC > 182 H (0-1) /hpf Urine WBC > 182 H (0-4) /hpf Urine Bacteria Mod A (0) /hpf 08/01/22 08/01/22 08/01/22 Range/Units 05:15 05:15 07:21 WBC 3.1 L (4.5-11.0) K/mcL RBC 2.30 L (4.63-6.08) M/mcL Hgb 7.9 L (13.7-17.5) g/dL Hct 24.2 L (40.1-51.0) % MCV 105.2 H (80.0-100.0) fL MCH 34.3 H (26.0-34.0) pg RDW 17.4 H (11.5-14.5) % Plt Count 96 L (140-440) K/mcL Immature Gran % (Auto) 1.0 H (0.0-0.5) % Lymph % (Auto) 14.4 L (15.5-49.0) % [place] % (Auto) 18.4 H (1.0-12.0) % Lymph # (Auto) 0.44 L (1.50-4.80) K/mcL PT 14.9 H (11.9-14.5) sec Anion Gap (8.0-16.0) Creatinine 1.4 H (0.7-1.2) mg/dL Glucose 120 H (70-105) mg/dL Calcium 8.1 L (8.6-10.4) mg/dL Phosphorus 5.0 H (2.5-4.5) mg/dL Lactate Dehydrogenase 232 H (135-225) U/L Total Protein 4.8 L (5.9-8.4) gm/dL Globulin 1.5 L (2.2-3.7) gm/dL Triglycerides 182 H (<150) mg/dL Urine Appearance (Clear) Urine Protein (Negative) mg/dL Urine Glucose (UA) (Negative) mg/dL Urine Occult Blood (Negative) jaki/mcL Urine RBC (0-1) /hpf Urine WBC (0-4) /hpf Urine Bacteria (0) /hpf Diabetes panel 07/31/22 08/01/22 Range/Units 13:59 05:15 Sodium 139 143 (133-145) mmol/L Potassium 4.5 4.0 (3.3-5.1) mmol/L Chloride 107 106 (96-108) mmol/L Carbon Dioxide 27 27 (22-30) mmol/L BUN 21 17 (8-23) mg/dL Creatinine 1.5 H 1.4 H (0.7-1.2) mg/dL Glucose 145 H 120 H (70-105) mg/dL Calcium 8.8 8.1 L (8.6-10.4) mg/dL AST 15 (<40) U/L ALT 8 (<40) U/L Alkaline Phosphatase 69 (39-117) U/L Total Protein 4.8 L (5.9-8.4) gm/dL Albumin 3.3 (3.2-5.2) gm/dL Triglycerides 182 H (<150) mg/dL Calcium panel 07/31/22 08/01/22 Range/Units 13:59 05:15 Calcium 8.8 8.1 L (8.6-10.4) mg/dL Phosphorus 5.0 H (2.5-4.5) mg/dL Albumin 3.3 (3.2-5.2) gm/dL Pituitary panel 07/31/22 08/01/22 Range/Units 13:59 05:15 Sodium 139 143 (133-145) mmol/L Potassium 4.5 4.0 (3.3-5.1) mmol/L Chloride 107 106 (96-108) mmol/L Carbon Dioxide 27 27 (22-30) mmol/L BUN 21 17 (8-23) mg/dL Creatinine 1.5 H 1.4 H (0.7-1.2) mg/dL Glucose 145 H 120 H (70-105) mg/dL Calcium 8.8 8.1 L (8.6-10.4) mg/dL Adrenal panel 07/31/22 08/01/22 Range/Units 13:59 05:15 Sodium 139 143 (133-145) mmol/L Potassium 4.5 4.0 (3.3-5.1) mmol/L Chloride 107 106 (96-108) mmol/L Carbon Dioxide 27 27 (22-30) mmol/L BUN 21 17 (8-23) mg/dL Creatinine 1.5 H 1.4 H (0.7-1.2) mg/dL Glucose 145 H 120 H (70-105) mg/dL Calcium 8.8 8.1 L (8.6-10.4) mg/dL Total Bilirubin 0.7 (0.1-1.0) mg/dL AST 15 (<40) U/L ALT 8 (<40) U/L Alkaline Phosphatase 69 (39-117) U/L Total Protein 4.8 L (5.9-8.4) gm/dL Albumin 3.3 (3.2-5.2) gm/dL All other labs normal. Imaging US - abdomen: report reviewed A/P Assessment and plan (1) Hematuria: Status: Chronic Plan Patient with gross hematuria and normal kidneys. I discussed options with the patient and his sister today and have decided that we will proceed with a cystoscopy under anesthetic while he is here in the hospital. Patient and I have discussed the procedure of cystoscopy, evacuation of clots, fulguration of bleeders, and possible transurethral section of bladder tumor. Patient is aware that I am not sure what I will find on cystoscopy but we will try and deal with what ever we find at this time. Procedure, indications, risk and possible complications of all been discussed. Patient's questions have been answered. Time Spent With Patient Time: Total time spent is greater than 50% in coordination of care (as documented) at patient's floor/unit and/or counseling patient:
[2022-08-01] MEDS: cefTRIAXone 2 GM in DEXTROSE 5% IN WATER 50 ML IV SCH (11:40)
--- NOTE | 2022-08-01 12:24 | Internal Med Progress Note ---
SUBJECTIVE Subjective Patient information: Note initiated : 08/01/22 at 12:19 pm Service Date, if different from initiated Date: [] Patient: Terrence Hoyos a 77 y/o M admitted on 07/31/22 for Transurethral Resection of Bladder Tumor w/. Chief Complaint: [] Interval history: Mr. Hoyos is a 77 year old male with a history of multiple comorbidities most significant of which is stage IV pancreatic adenocarcinoma diagnosed in 2017 currently receiving chemotherapy every 2 weeks with gemcitabine and Abraxane. 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 Patient also has a history of prostate cancer diagnosed 5 to 6 years ago treated with external beam radiation treatments. More recently, the patient developed gross hematuria and was seen in the ED where he was found to have a urinary tract infection. The patient was started on antibiotics which she recently finished for UTI. The patient continues to have hematuria which has not improved in spite of antibiotic treatment. The patient did have a CT abdomen pelvis with contrast on 07/20/2022 which showed abnormal bladder mucosal thickening which could represent cystitis versus malignancy. The patient presents today to the emergency department for generalized weakness and a fall at home. The patient says that he has been getting progressively weaker over the last week. He continues to experience gross hematuria with clots seen in his urine. In the emergency department, the patient's hemoglobin was 7.7, down from 10.3 on 07/21/2022. Patient also has a elevation in creatinine to 1.5, baseline 1.0-1.2. Patient did have a CT head which did not show any acute changes. Patient also had a x-ray of his right hip which did not show any acute fractures. Upon examination, the patient is noted to have gross hematuria. He has bilateral lower extremity pitting edema and is on 4 L nasal cannula oxygen. Patient says that this oxygen requirement is not new, he has been on home oxygen for some time. We discussed the plan of care and reviewed the patient's CODE STATUS. Patient says that he wishes to be a limited code. 07/01 Patient continues to have a gross hematuria, hemoglobin 7.9 this morning. Renal function improved modestly, bilateral renal ultrasound revealed a 2.9 x 5.6 x 6.1 cm mass in the bladder. Urology plans to perform a cystoscopy today. Bilateral lower extremity edema has improved, transition to home Lasix for tomorrow. Physical exam Head: Atraumatic, normal inspection. Eyes: normal appearance, no scleral icterus. Respiratory: Nasal cannula oxygen supplementation, no respiratory distress. Cardiovascular: normal rate and rhythm, S1, S2. GI/Abdominal: soft, nontender, no guarding. : Mccabe catheter present, gross hematuria in collection bag. Extremities: Improvement in bilateral lower extremity pitting edema up to knees, full range of motion, nontender. Neurological: CN II-XII intact, intact motor, intact sensation. Psychiatric: Normal mood. Skin: warm, normal color Constitutional Vitals: Vital Signs Temp Pulse Resp BP Pulse Ox O2 Del Method O2 Flow Rate 98.2 F 78 16 126/61 98 4 08/01/22 12:00 08/01/22 12:00 08/01/22 12:00 08/01/22 12:00 08/01/22 12:00 08/01/22 12:00 08/01/22 12:00 Period Temp Pulse Resp BP Sys/[place] Pulse Ox O2 Del Method O2 Flow Rate Last 24 Hr 96.8 F-98.2 F 72-91 16-18 101-126/54-69 95-100 Nasal Cannula- Room Air 4-4 Intake and Output 07/31/22 08/01/22 08/01/22 21:59 05:59 13:59 Intake Total 1325 598 Output Total 1450 1875 Balance 1325 -852 -1875 Weight 108.125 kg Intake & Output: Intake & Output 07/31/22 08/01/22 08/01/22 21:59 05:59 13:59 Intake Total 1325 598 Output Total 1450 1875 Balance 1325 -852 -1875 Weight 108.125 kg Intake: IV 1000 50 Sodium Chloride 0.9% 1,000 ml @ 1000 Wide Open IV BOLUS ONE Rx#: [id number] Rocephin 2 gm In Dextrose 5% in 50 Water 50 ml @ 100 mls/hr IV Q24H [facility] Rx#:[id number] Oral 518 Blood Product 325 IV - Manual Only 30 Output: Urine Catheter Amount 1450 Void Amount 1875 Other: Meal Pear cup x 1 Percent of Meal Consumed 100% Urine Appearance Hematuria Hematuria Small Blood Clots Uretheral (Mccabe) Hematuria Urine Color Dark Red Dark Red Dark Red Uretheral (Mccabe) Dark Red Urine Odor Normal OBJ DATA Labs CBC & Chem 7: 08/01/22 05:15 08/01/22 05:15 Labs: Abnormal Lab Results 08/01/22 08/01/22 08/01/22 07:21 05:15 05:15 WBC 3.1 L RBC 2.30 L Hgb 7.9 L Hct 24.2 L MCV 105.2 H MCH 34.3 H RDW 17.4 H Plt Count 96 L Immature Gran % (Auto) 1.0 H Lymph % (Auto) 14.4 L [place] % (Auto) 18.4 H Lymph # (Auto) 0.44 L PT 14.9 H Anion Gap Creatinine 1.4 H Glucose 120 H Calcium 8.1 L Phosphorus 5.0 H Lactate Dehydrogenase 232 H Total Protein 4.8 L Globulin 1.5 L Triglycerides 182 H Urine Appearance Urine Protein Urine Glucose (UA) Urine Occult Blood Urine RBC Urine WBC Urine Bacteria 07/31/22 07/31/22 07/31/22 15:12 13:59 13:59 WBC 3.1 L RBC 2.22 L Hgb 7.7 L Hct 24.3 L MCV 109.5 H MCH 34.7 H RDW 17.1 H Plt Count 94 L Immature Gran % (Auto) 1.6 H Lymph % (Auto) 11.8 L [place] % (Auto) 19.3 H Lymph # (Auto) 0.36 L PT Anion Gap 5.0 L Creatinine 1.5 H Glucose 145 H Calcium Phosphorus Lactate Dehydrogenase Total Protein Globulin Triglycerides Urine Appearance Cloudy A Urine Protein >=300 A Urine Glucose (UA) >=1000 A Urine Occult Blood Large A Urine RBC > 182 H Urine WBC > 182 H Urine Bacteria Mod A Meds: Medications Acetaminophen (Acetaminophen 325 Mg Tablet) 650 mg PO Q6HP PRN; Protocol PRN Reason: Per Pain Protocol/Fever > 101 Last Admin: 07/31/22 23:11 Dose: 650 mg Albuterol Sulfate (Albuterol Sulfate 2.5 Mg/3 Ml Nebulizer) 2.5 mg NEB Q2HP PRN PRN Reason: Shortness Of Breath Dextrose (Dextrose 50% 50 Ml Vial) 0 ml IV UD PRN PRN Reason: Per Sliding Scale Diagnostic Test (Pha) (Accu-Chek 1 Each Strip) 1 each FS ACHS NAA Last Admin: 08/01/22 11:39 Dose: 1 each Docusate Sodium (Docusate Sodium 100 Mg Capsule) 100 mg PO BID [facility] Last Admin: 08/01/22 08:29 Dose: Not Given Glucose (Dextrose 31 Gm Oral.Susp) 15 gm PO PRN PRN PRN Reason: Hypoglycemia Ceftriaxone Sodium 2 gm/ (Dextrose) 50 mls @ 100 mls/hr IV Q24H [facility]; Protocol Last Admin: 08/01/22 11:40 Dose: 100 mls/hr Insulin Human Lispro (Insulin Lispro 1 Unit/0.01 Ml Unit) 0 unit SQ [facility]; Protocol Last Admin: 08/01/22 11:40 Dose: Not Given Ondansetron HCl (Ondansetron 4 Mg/2 Ml Vial) 4 mg IV Q6HP PRN PRN Reason: Nausea And Vomiting Oxycodone HCl (Oxycodone Hcl 5 Mg Tablet) 10 mg PO Q6HP PRN; Protocol PRN Reason: Per Pain Protocol Last Admin: 08/01/22 01:24 Dose: 10 mg Senna (Sennosides 1 Tablet) 2 tab PO HS [facility] Last Admin: 07/31/22 23:12 Dose: Not Given Sodium Chloride (0.9 % Sodium Chloride 10 Ml Syringe) 10 ml IV Q8 [facility] Last Admin: 08/01/22 05:16 Dose: 10 ml A/P Narrative A/P Narrative: Assessment: 77-year-old male with stage IV pancreatic adenocarcinoma on chemotherapy, history of prostate cancer, and multiple other comorbidities admitted for acute on chronic anemia likely secondary to gross hematuria. Recent imaging suggest the patient has a bladder mass. #Acute on chronic anemia #Gross hematuria #Recent UTI secondary to Klebsiella pneumonia #Probable bladder mass #Acute kidney injury #Volume overload #Generalized weakness #COPD with chronic hypoxia #Type 2 diabetes mellitus #Chronic pain secondary to cancer #History of prostate cancer #Stage IV pancreatic adenocarcinoma on palliative chemotherapy (gemcitabine and Abraxane) Plan -Received 1 unit RBC in the ED. -Follow hemoglobin, transfuse for hemoglobin less than 7 or symptomatic anemia. -Start Lasix 20 mg daily, received IV Lasix 40 mg x 2. -Monitor renal function, urine output. -Correction Humalog SSIlow dose. -Oxygen supplementation. -Analgesics as needed. -Home medication reconciliation, continue important meds. -Urology following, planning for cystoscopy 08/01/2022. -Remove Mccabe catheter when okay with urology. -N.p.o. until after cystoscopy. -PT and OT consult. -DVT prophylaxis: SCDs -CODE STATUS: Limited -Disposition: TBD, rehab options may be limited by ongoing chemotherapy. Time Spent With Patient Time: Total time spent is greater than 50% in coordination of care (as documented) at patient's floor/unit and/or counseling patient:
[2022-08-01] MEDS ORDERED: GLYCOPYRROLATE 0.2 MG/ML VIAL IV ONE (12:27)
[2022-08-01] MEDS ORDERED: ONDANSETRON 4 MG/2 ML VIAL ONE (12:27)
[2022-08-01] MEDS ORDERED: LIDOCAINE HCL/PF 100 MG/5 ML SYRINGE IV ONE (12:27)
[2022-08-01] MEDS ORDERED: SUGAMMADEX SODIUM 200 MG/2 ML VIAL IV ONE (12:27)
[2022-08-01] MEDS ORDERED: ROCURONIUM 10 MG/ML ML IV ONE (12:27)
[2022-08-01] MEDS ORDERED: PROPOFOL 200 MG/20 ML VIAL IV ONE (12:27)
[2022-08-01] MEDS ORDERED: PHENYLephrine 1 MG/10 ML SYRINGE (ANEST) ONE (12:27)
[2022-08-01] MEDS ORDERED: KETAMINE 50 MG/ML Syringe (ANEST) IV ONE (12:27)
--- NOTE | 2022-08-01 13:20 | Operative Note ---
Brief Operative Note Date of procedure: 08/01/22 Pre-op diagnosis: Gross hematuria, possible bladder mass Post-op diagnosis: other (Gross hematuria, bladder tumor) Procedure: Cystoscopy, evacuation of clots, and transurethral section of bladder tumor Grafts/Implants: No Anesthesia: GETA Findings: Approximately 50 cc of within the bladder. Tumor occupying the bladder neck the bladder from approximately 11:00 to 5:00. Tumor did extend into the prostatic fossa. No tumor beyond the bladder neck into the bladder. Minimal trabeculation of the bladder. Complications: none Surgeon: Aleksander Angela Estimated blood loss (cc): 10 Specimens Removed/Pathology: other (Bladder tumor and clot) Condition: stable Disposition: PACU Operative Note Operative Note: After obtaining consent the patient was taken to the operating room where general anesthesia was induced. Patient was placed in dorsolithotomy position and prepped and draped in sterile fashion. A well-lubricated cystoscope was placed in the patient's bladder under direct visualization. A large volume of clot was irrigated free from the bladder. Cystourethroscopy was then performed and the tumor was noted at the bladder neck on the patient's left side. At this time the cystoscope was removed and a 20 Cam[place]onian continuous-flow resectoscope sheath was placed into the patient's bladder using a visual obturator. Bipolar cutting electrode was then used to resect the tumor. Once all visible tumor was resected good hemostasis was obtained throughout the tumor bed. Ureteral orifices were noted to be intact and in orthotopic position. Hemostasis was also obtained in the prostatic fossa. At this time no bleeding was noted. Resectoscope sheath was removed. A 20 [place]onian two-way Mccabe catheter was placed in the patient's bladder with 10 cc placed in the balloon clear return was noted. Patient was then awoken and taken to postanesthesia care unit stable condition.
[2022-08-01] MEDS ORDERED: NALOXONE HCL 0.4 MG/ML VIAL IV PRN (13:42)
[2022-08-01] MEDS ORDERED: LACTATED RINGERS 250 ML IV PRN (13:42)
[2022-08-01] MEDS ORDERED: PROMETHAZINE 25 MG/ML VIAL IM PRN (13:42)
[2022-08-01] MEDS ORDERED: MEPERIDINE 25 MG/ML VIAL IV PRN (13:42)
[2022-08-01] MEDS ORDERED: MEPERIDINE 50 MG/ML VIAL IM PRN (13:42)
[2022-08-01] MEDS ORDERED: PROMETHAZINE 25 MG/ML VIAL IV PRN (13:42)
[2022-08-01] MEDS ORDERED: HYDROmorphone 0.5 MG/0.5 ML SYRINGE IV PRN (13:42)
[2022-08-01] MEDS ORDERED: ONDANSETRON 4 MG/2 ML VIAL IV PRN (13:42)
[2022-08-01] MEDS ORDERED: IPRATROPIUM/ALBUTEROL 3 ML AMPUL.NEB NEB PRN (13:42)
[2022-08-01] MEDS ORDERED: METOCLOPRAMIDE 10 MG/2 ML VIAL IV PRN (13:42)
[2022-08-01] MEDS ORDERED: ACETAMINOPHEN 1,000 MG/100 ML BAG IV ONE (13:42)
[2022-08-01] MEDS ORDERED: LACTATED RINGERS 1,000 ML IV SCH (13:45)
[2022-08-01] MEDS: fentaNYL 100 MCG/2 ML VIAL IV PRN ×4 (13:47→14:02)
[2022-08-01] MEDS ORDERED: fentaNYL 100 MCG/2 ML VIAL IV ONE (13:58)
[2022-08-01] MEDS: SENNOSIDES 1 TABLET PO SCH (20:28)
[2022-08-02] MEDS ORDERED: HALOPERIDOL LACTATE 5 MG/ML VIAL IV PRN (02:30)
[2022-08-02] MEDS: HALOPERIDOL LACTATE 5 MG/ML VIAL ONE ×2 (02:41→02:49)
[2022-08-02] MEDS: oxyCODONE HCL 5 MG TABLET PO PRN ×2 (04:01→06:32)
[2022-08-02] MEDS: 0.9 % SODIUM CHLORIDE 10 ML SYRINGE IV SCH (05:32)
[2022-08-02] MEDS: INSULIN LISPRO 1 UNIT/0.01 ML UNIT SQ SCH ×2 (06:50→11:42)
[2022-08-02 06:56] LABS: ALT/SGPT 8 U/L (<40); AST/SGOT 17 U/L (<40); Albumin 3.4 gm/dL (3.2-5.2); Albumin/Globulin Ratio 2.3 (1.0-2.3); Alkaline Phosphatase 80 U/L (39-117); Bilirubin,Direct 0.3 mg/dL (<0.3); Bilirubin,Total 0.9 mg/dL (0.1-1.0); Blood Urea Nitrogen 20 mg/dL (8-23); Calcium 8.7 mg/dL (8.6-10.4); Carbon Dioxide 28 mmol/L (22-30); Chloride 102 mmol/L (96-108); Globulin 1.5 gm/dL (2.2-3.7); Glomerular Filtration Rate 47; Glucose 136 mg/dL (70-105); Lactate Dehydrogenase 278 U/L (135-225); Phosphorous 4.3 mg/dL (2.5-4.5); Triglycerides 135 mg/dL (<150)
[2022-08-02 06:59] LABS: Basophils # (Auto) 0.01 K/mcL (0.00-0.30); Basophils % (Auto) 0.2 % (0.0-2.0); Eosinophils # (Auto) 0 K/mcL (0.00-0.70); Eosinophils % (Auto) 0 % (0.0-7.0); Hematocrit 25.7 % (40.1-51.0); Hemoglobin 8.5 g/dL (13.7-17.5); Lymphocytes # (Auto) 0.41 K/mcL (1.50-4.80); Lymphocytes % (Auto) 7.9 % (15.5-49.0); Mean Cell Volume 102.4 fL (80.0-100.0); Mean Corpuscular HGB Conc 33.1 g/dL (31.0-36.0); Mean Platelet Volume 9.9 fL (8.8-12.5); Monocytes # (Auto) 0.83 K/mcL (0.10-0.90); Monocytes % (Auto) 15.9 % (1.0-12.0); Platelet Count 136 K/mcL (140-440); RBC 2.51 M/mcL (4.63-6.08); Red Cell Distribution Width 16.9 % (11.5-14.5); WBC 5.2 K/mcL (4.5-11.0)
[2022-08-02] MEDS ORDERED: OMEPRAZOLE 20 MG CAPSULE PO SCH (07:30)
[2022-08-02] MEDS ORDERED: OPIUM/BELLADONNA ALKALOIDS 30 MG SUPP.RECT PR PRN (07:31)
--- NOTE | 2022-08-02 07:43 | Urology Progress Note ---
SUBJECTIVE Subjective Patient information: Note initiated : 08/02/22 at 7:37 am Service Date, if different from initiated Date: [] Patient: Terrence Hoyos 77 y/o M admitted on 07/31/22 for Transurethral Resection of Bladder Tumor w/. Chief Complaint: [] Principal diagnosis: Patient admitted for fall secondary to anemia from persistent gross hematur Interval history: Patient became confused last night. Patient is more restful this morning. Pertinent ROS: Unable to obtain review of systems secondary to patient's mental status Constitutional Vitals: Vital Signs Temp Pulse Resp BP Pulse Ox O2 Del Method O2 Flow Rate 98.2 F 100 H 20 139/71 94 4 08/01/22 23:09 08/02/22 07:24 08/02/22 07:24 08/02/22 07:24 08/02/22 07:24 08/02/22 07:24 08/02/22 07:24 Period Temp Pulse Resp BP Sys/[place] Pulse Ox O2 Del Method O2 Flow Rate Last 24 Hr 97.0 F-98.6 F 76-129 08-16 111-159/57-142 88-99 Nasal Cannula- Room Air 2-5 Intake and Output 08/01/22 08/02/22 08/02/22 21:59 05:59 13:59 Intake Total 1480 Output Total 550 300 Balance 930 -300 Weight 107.275 kg Intake & Output: Intake & Output 08/01/22 08/02/22 08/02/22 21:59 05:59 13:59 Intake Total 1480 Output Total 550 300 Balance 930 -300 Weight 107.275 kg Intake: Nourishment/Supplement quantity 210 (ml) IV 350 Sodium Chloride 0.9% 250 ml @ 250 20 mls/hr IV .[id number] [facility] Rx#: [id number] Oral 120 IV - Manual Only 800 Output: Urine Catheter Amount 550 300 Other: Meal Nourishment/Supplement Percent of Meal Consumed 50% Nourishment/Supplement name Ensure Urine Appearance Clear Uretheral (Mccabe) Clear Urine Color Yellow Blood Tinged Uretheral (Mccabe) Yellow Urine Odor Normal Exam: Agitated this morning Respiratory Respiratory exam: Present normal respiratory exam GI/Abdominal GI/Abdominal exam: Present soft; Absent distended, mass or tenderness Additional comments: Mccabe catheter in place draining clear urine without clots Additional findings Additional findings: Laboratory work reviewed A/P Assessment and plan (1) Hematuria: Status: Chronic (2) Bladder mass: Status: Acute Narrative A/P Narrative: Patient postop day 1 from cystoscopy, evacuation of clots, and transurethral resection of bladder mass bladder neck. Given the appearance of the mass and patient's history this mass may represent his prostate cancer. Patient's urine is quite clear this morning. Patient very agitated last night, less so this morning. It would be my recommendation that we get the Mccabe catheter out this morning. I would recommend avoiding any anticholinergic medications as this may contribute to his agitation and confusion. I have written an order for BNO suppositories if needed. If the patient is voiding without difficulty today he could be discharged to follow-up with me in approximately 1 week in my office. Time Spent With Patient Time: Total time spent is greater than 50% in coordination of care (as documented) at patient's floor/unit and/or counseling patient:
[2022-08-02] MEDS ORDERED: OXYBUTYNIN CHLORIDE 5 MG TABLET PO SCH (09:00)
[2022-08-02] MEDS ORDERED: FUROSEMIDE 40 MG TABLET PO SCH (09:00)
[2022-08-02] MEDS: DOCUSATE SODIUM 100 MG CAPSULE PO SCH (09:16)
[2022-08-02] MEDS: GABAPENTIN 300 MG CAPSULE PO SCH ×2 (09:21→11:49)
--- NOTE | 2022-08-02 13:29 | Discharge Summary ---
Discharge Provider Provider IMPORTANT FOLLOW-UP INFORMATION FOR PCP: Patient information: Note initiated : 08/02/22 at 1:24 pm Service Date, if different from initiated Date: [] Patient: Terrence Hoyos 77 y/o M admitted on 07/31/22 for Transurethral Resection of Bladder Tumor w/. Chief Complaint: [] Date of admission: 07/31/22 20:43 Discharge date: 08/02/22 Primary care physician: Thai Joy DO Consults: 07/31/22 Consult to Physician [CONS] Stat Comment: Consulting Provider: Alton Glez Reason For Exam: Physician to Consult COURSE Hospital Course Hospital course: Mr. Hoyos is a 77 year old male with a history of multiple comorbidities most significant of which is stage IV pancreatic adenocarcinoma diagnosed in 2017 currently receiving chemotherapy every 2 weeks with gemcitabine and Abraxane. 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 Patient also has a history of prostate cancer diagnosed 5 to 6 years ago treated with external beam radiation treatments. More recently, the patient developed gross hematuria and was seen in the ED where he was found to have a urinary tract infection. The patient was started on antibiotics which she recently finished for UTI. The patient continues to have hematuria which has not improved in spite of antibiotic treatment. The patient did have a CT abdomen pelvis with contrast on 07/20/2022 which showed abnormal bladder mucosal thickening which could represent cystitis versus malignancy. The patient presents today to the emergency department for generalized weakness and a fall at home. The patient says that he has been getting progressively weaker over the last week. He continues to experience gross hematuria with clots seen in his urine. In the emergency department, the patient's hemoglobin was 7.7, down from 10.3 on 07/21/2022. Patient also has a elevation in creatinine to 1.5, baseline 1.0-1.2. Patient did have a CT head which did not show any acute changes. Patient also had a x-ray of his right hip which did not show any acute fractures. Upon examination, the patient is noted to have gross hematuria. He has bilateral lower extremity pitting edema and is on 4 L nasal cannula oxygen. Patient says that this oxygen requirement is not new, he has been on home oxygen for some time. We discussed the plan of care and reviewed the patient's CODE STATUS. Patient says that he wishes to be a limited code. 08/01 Patient continues to have a gross hematuria, hemoglobin 7.9 this morning. Renal function improved modestly, bilateral renal ultrasound revealed a 2.9 x 5.6 x 6.1 cm mass in the bladder. Urology plans to perform a cystoscopy today. Bilateral lower extremity edema has improved, transition to home Lasix for tomorrow. 08/02 Overnight the patient had an episode of agitation and confusion overnight, received Haldol 2 mg IV once. In the morning, the patient had recovered to his baseline, alert oriented and conversant. Discontinue the patient's oxybutynin as this can contribute to confusion. Cystoscopy yesterday showed a bladder tumor, the patient underwent evacuation of blood clots and transurethral resection of the bladder tumor. Urine was clear today, Mccabe catheter removed this morning. Urology feels the patient can discharge to home and follow-up in clinic. Patient is discharged home with family, follow-up with urology and PCP. Norvasc was not resumed at discharge as the patient's blood pressure was normal during the hospitalization off Norvasc. Labetalol was continued at discharge. Physical exam Head: Atraumatic, normal inspection. Eyes: normal appearance, no scleral icterus. Respiratory: Nasal cannula oxygen supplementation, no respiratory distress. Cardiovascular: normal rate and rhythm, S1, S2. GI/Abdominal: soft, nontender, no guarding. : Mccabe catheter present, clear urine in collection bag Extremities: Improvement in bilateral lower extremity pitting edema up to knees, full range of motion, nontender. Neurological: CN II-XII intact, intact motor, intact sensation. Psychiatric: Normal mood. Skin: warm, normal color Discharge diagnosis: Gross hematuria Secondary discharge diagnosis: Bladder mass Time Spent with Patient Time attestation: Total time spent providing and/or coordinating discharge services: Time spent: Less than 30 minutes EXAM Constitutional Vitals: Temp Pulse Resp BP Pulse Ox O2 Del Method O2 Flow Rate 97.3 F 100 H 20 126/68 97 4 08/02/22 12:00 08/02/22 07:24 08/02/22 12:00 08/02/22 12:00 08/02/22 12:00 08/02/22 12:00 08/02/22 08:00 Discharge Data Data Completed and Pending Labs on day of discharge: Labs from last 24 hours 08/02/22 08/02/22 08/02/22 12:05 05:20 05:20 WBC 5.2 RBC 2.51 L Hgb 9.4 L 8.5 L Hct 25.7 L MCV 102.4 H MCH 33.9 MCHC 33.1 RDW 16.9 H Plt Count 136 L MPV 9.9 Immature Gran % (Auto) 1.0 H Neut % (Auto) 75.0 Lymph % (Auto) 7.9 L [place] % (Auto) 15.9 H Eos % (Auto) 0 Baso % (Auto) 0.2 Lymph # (Auto) 0.41 L [place] # (Auto) 0.83 Eos # (Auto) 0 Baso # (Auto) 0.01 Immature Gran # 0.05 Absolute Neutrophils 3.92 Sodium 139 Potassium 4.5 Chloride 102 Carbon Dioxide 28 Anion Gap 9.0 BUN 20 Creatinine 1.4 H GFR Calculation 47 Glucose 136 H Uric Acid 8.0 Calcium 8.7 Phosphorus 4.3 Magnesium 2.2 Total Bilirubin 0.9 Direct Bilirubin 0.3 H GGT 19 AST 17 ALT 8 Alkaline Phosphatase 80 Lactate Dehydrogenase 278 H Total Protein 4.9 L Albumin 3.4 Globulin 1.5 L Albumin/Globulin Ratio 2.3 Triglycerides 135 08/01/22 14:05 WBC RBC Hgb 9.3 L Hct MCV MCH MCHC RDW Plt Count MPV Immature Gran % (Auto) Neut % (Auto) Lymph % (Auto) [place] % (Auto) Eos % (Auto) Baso % (Auto) Lymph # (Auto) [place] # (Auto) Eos # (Auto) Baso # (Auto) Immature Gran # Absolute Neutrophils Sodium Potassium Chloride Carbon Dioxide Anion Gap BUN Creatinine GFR Calculation Glucose Uric Acid Calcium Phosphorus Magnesium Total Bilirubin Direct Bilirubin GGT AST ALT Alkaline Phosphatase Lactate Dehydrogenase Total Protein Albumin Globulin Albumin/Globulin Ratio Triglycerides Discharge Plan Patient/Caregiver Discharge Instructions Activity: increase activity as tolerated Diet: Consistent Carbohydrate Prescriptions: New belladonna alkaloids-opium 16.2-30 mg Suppository 1 supp HI Q4HP PRN (Reason: Bladder Spasms) Qty: 12 0RF Continued Jardiance 25 mg tablet 25 mg PO QDAY Qty: 90 3RF (DME) Portable O2 concentrator See Rx Instructions .Route .MEDSUPPLY Qty: 1 0RF Rx Instructions: Up to 2L NC as needed to keep O2 >90% labetalol 200 mg tablet 200 mg PO BID Qty: 180 1RF potassium chloride 20 mEq tablet extended release 20 meq PO QPMCC Qty: 90 1RF omeprazole 40 mg capsule,delayed release(DR/EC) 40 mg PO BID Qty: 180 1RF gabapentin 300 mg capsule 300 mg PO .COMPLEX Qty: 120 3RF Rx Instructions: 300 mg PO QAM, 300mg QNoon, 600mgQHS; furosemide [Lasix] 20 mg tablet 20 mg PO QDAY Qty: 30 1RF oxybutynin chloride 5 mg tablet 5 mg PO BID Qty: 180 0RF cholecalciferol (vitamin D3) 1,000 unit tablet 1,000 unit PO QDAY magnesium oxide 400 mg (241.3 mg magnesium) tablet 400 mg PO QDAY calcium carbonate [Calcium 600] 600 mg calcium (1,500 mg) tablet 600 mg PO QDAY mirtazapine 15 mg tablet 15 mg PO QHS Qty: 90 3RF tamsulosin [Flomax] 0.4 mg capsule 0.4 mg PO QHS Qty: 90 3RF hydrocodone-acetaminophen 10-325 mg Tablet 1 - 2 tab PO Q4HP PRN (Reason: Per Pain Protocol) Qty: 60 0RF docusate sodium [DOK] 100 mg capsule 100 mg PO BID PRN (Reason: Constipation) Discontinued amlodipine 5 mg tablet 5 mg PO BID Qty: 180 1RF Follow Up Plan Follow up with: Aleksander Angela MD [Physician] - Thai Joy DO [Primary Care Provider] - Patient Disposition: Home, Self-Care Overall status at discharge: patient is progressing back to baseline Discharge Orders: Discharge Order (Routine); Ordered 08/02/22 Ordered By: Alton Glez
[2022-08-02] MEDS ORDERED: HEPARIN SODIUM,PORCINE/PF 500 UNIT/5 ML SYRINGE IV ONE (14:15)
[2022-08-02] MEDS ORDERED: MIRTAZAPINE 15 MG TABLET PO SCH (21:00)
[2022-08-02] MEDS ORDERED: TAMSULOSIN 0.4 MG CAPSULE PO SCH (21:00)
[2022-08-02] MEDS ORDERED: GABAPENTIN 300 MG CAPSULE PO SCH (21:00)
== END 2022-08-02 14:48 | disposition home or self-care (01) | DRG 669 ==
LOC: ED 12:56 → MEDSUR 20:43
PROVIDERS: ADMIT Internal Medicine; ATTEND Internal Medicine